=== PATIENT | female | born 1955 | race Hispanic/Latino ===

== ENCOUNTER 2021-01-08 21:47 | Emergency (ER) | payer MEDICARE ==
[~2021-01-08] VITALS: Ht 160 cm; Wt 92.5 kg
== END 2021-01-09 01:15 | disposition home or self-care (01) ==
LOC: ER 23:27
DX: M54.5 Low back pain (principal); G89.29 Other chronic pain; I10 Essential (primary) hypertension; E11.9 Type 2 diabetes mellitus without complications; J45.909 Unspecified asthma, uncomplicated; F41.9 Anxiety disorder, unspecified
CPT/HCPCS: 72070; 72100; 99284